=== PATIENT | male | born 1975 | race Caucasian/White ===

== ENCOUNTER 2017-07-01 17:33 | Emergency (ER) | payer OTHER ==
[~2017-07-01] VITALS: Wt 111.1 kg
[~2017-07-01 17:33] MED LIST: ATARAX25 MG PO; DOXYCYCLINE MO100 MG PO; ELIMITE 5%60 GM T; NAPROSYN500 MG PO; NORCO 325 MG-51 TAB PO; PEN-V500 MG PO; PERIDEX 480 ML480 ML PO; PHENERGAN W/CO120 ML PO; ULTRAM50 MG PO; VICODIN 5/500 505 MG PO
[2017-07-01] MEDS ORDERED: AMOXICILLIN500 M2 PO (18:04)
== END 2017-07-01 18:11 | disposition home or self-care (01) ==
LOC: ED 17:33
DX: H66.91 Otitis media, unspecified, right ear (principal); F17.200 Nicotine dependence, unspecified, uncomplicated

== ENCOUNTER 2017-12-15 17:36 | Emergency (ER) | payer OTHER ==
[~2017-12-15] VITALS: Ht 180.3 cm; Wt 104.3 kg
[~2017-12-15 17:36] MED LIST changes: +AMOXICILLIN500 M2 PO
[2017-12-15] MEDS ORDERED: CLINDAMYCIN HC300 MG PO (17:47)
[2017-12-15] MEDS ORDERED: ANAPROX DS550 MG PO (17:47)
== END 2017-12-15 17:46 | disposition home or self-care (01) ==
LOC: ED 17:36
DX: K04.7 Periapical abscess without sinus (principal); F17.200 Nicotine dependence, unspecified, uncomplicated

== ENCOUNTER 2018-04-25 14:46 | Emergency (ER) | payer OTHER ==
[~2018-04-25] VITALS: Ht 177.8 cm; Wt 104.3 kg
[~2018-04-25 14:46] MED LIST changes: +ANAPROX DS550 MG PO; +CLINDAMYCIN HC300 MG PO
[2018-04-25] MEDS ORDERED: Tobrex Ophth S2.5 ML OPH (15:16)
== END 2018-04-25 15:25 | disposition home or self-care (01) ==
LOC: ED 14:46
DX: H10.9 Unspecified conjunctivitis (principal); R03.0 Elevated blood-pressure reading, without diagnosis of hypertension

== ENCOUNTER 2018-08-02 15:26 | Emergency (ER) | payer OTHER ==
[~2018-08-02] VITALS: Ht 177.8 cm; Wt 106.6 kg
[~2018-08-02 15:26] MED LIST changes: +Tobrex Ophth S2.5 ML OPH
[2018-08-02] MEDS ORDERED: PREDNISONE50 MG PO (17:25)
[2018-08-02] MEDS ORDERED: CHLORZOXAZONE500 M2 PO (17:25)
[2018-08-02] MEDS ORDERED: PENICILLIN VK500 MG PO (17:25)
[2018-08-02] MEDS ORDERED: NAPROSYN500 MG PO (17:25)
== END 2018-08-02 17:57 | disposition home or self-care (01) ==
LOC: ED 15:26
DX: S39.012A Strain of muscle, fascia and tendon of lower back, initial encounter (principal); K04.7 Periapical abscess without sinus; M62.830 Muscle spasm of back; F17.200 Nicotine dependence, unspecified, uncomplicated; X50.0XXA Overexertion from strenuous movement or load, initial encounter; Y93.89 Activity, other specified; Y92.89 Other specified places as the place of occurrence of the external cause; Y99.8 Other external cause status

== ENCOUNTER 2019-01-18 20:17 | Emergency (ER) | payer SELFPAY ==
[~2019-01-18] VITALS: Ht 180.3 cm; Wt 104.3 kg
[~2019-01-18 20:17] MED LIST changes: +CHLORZOXAZONE500 M2 PO; +PENICILLIN VK500 MG PO; +PREDNISONE50 MG PO
[2019-01-18] MEDS ORDERED: Motrin,Rufen800 MG PO (20:35)
[2019-01-18] MEDS ORDERED: FLAGYL500 MG PO (20:45)
[2019-01-23 17:04] LABS: GONOCOCCUS BY NAA Negative (Negative)
== END 2019-01-18 22:09 | disposition home or self-care (01) ==
LOC: ED 20:17
PROVIDERS: Physician Assistant
DX: Z11.3 Encounter for screening for infections with a predominantly sexual mode of transmission (principal); F17.200 Nicotine dependence, unspecified, uncomplicated; Z79.899 Other long term (current) drug therapy